=== PATIENT | male | born 1980 | race Caucasian/White ===

== ENCOUNTER 2017-10-22 09:21 | Emergency (ER) | payer OTHER, MEDICARE ==
[~2017-10-22] VITALS: Ht 180.3 cm; Wt 89.8 kg
[~2017-10-22 09:21] MED LIST: AZITHROMYCIN 2250 MG PO; BENADRYL25 MG PO; BUSPAR30 MG PO; COUMADIN 5 MG TA5 M1 PO; DEPAKOTE 250MG250 M1 PO; ESKALITH300 MG; FLOMAX PO; FLUVIRIN 245 MCG/010 IM; HYDROCODONE-AP1 EAC6 PO; HYDROCORTISONE; IMITREX 6M6 MG/0.5 M SQ; IMITREX6 MG/0.51 NASAL; IRON18 MG PO; LASIX 80 MG TAB80 M1 GT; LEXAPRO 10 MG T10 MG PO; LYRICA150 MG PO; METAMUCIL0.52 GM PO; MS CONTIN 30 MG30 MG GT; OMEPRAZOLE20 M2 PO; ORPHENADRINE C100 M2 PO; OXTELLAR XR300 MG PO; PERCOCET 10-651 EACH PO; PERCOCET 5-3251 EACH PO; PHENERGAN 25 MG25 MG PO; ROXICODONE30 M1; SPIRONOLACTONE50 MG PO; TIZANIDINE HCL6 MG PO; VERAPAMIL HCL80 MG PO; VIBRYD PO; XANAX XR1 MG PO; ZOFRAN4 MG PO; ZOLPIDEM TART6.25 MG PO
[2017-10-22] MEDS ORDERED: XARELTO10 MG PO (09:30)
[2017-10-22] MEDS ORDERED: LYRICA 50 MG50 MG PO (09:30)
[2017-10-22] MEDS ORDERED: OXYCONTIN10 M1 PO (09:31)
[2017-10-22 10:38] LABS: ABSOLUTE EOSINOPHILS 0.1 thou/uL (0.0-0.7); ABSOLUTE LYMPHOCYTES 1.9 thou/uL (0.8-5.3); ABSOLUTE MONOCYTES 0.5 thou/uL (0.0-1.2); ABSOLUTE NEUTROPHILS 8.5 thou/uL (1.6-8.1); BASOPHILS 0.4 %; EOSINOPHILS 1.3 %; HEMATOCRIT 42.9 % (42.0-52.0); HEMOGLOBIN 14.2 gm/dL (14.0-18.0); LYMPHOCYTES 17.3 %; MCH 32.5 pg (26.0-34.0); MCHC 33.1 g/dL (28.0-37.0); MONOCYTES 4.8 %; MPV 7.8 fl. (7.2-11.1); NUCLEATED RBCS 0 /100WBC; PLATELET COUNT* 301 thou/uL (150-400); POLYS 76.2 %; RBC 4.38 mil/uL (4.50-6.00); RDW-CV 14.2 % (10.5-14.5); WBC 11.2 thou/uL (4.0-11.0)
[2017-10-22 10:42] LABS: CALCIUM 8.8 mg/dL (8.5-10.1); CREATININE 0.8 mg/dL (0.6-1.3); POTASSIUM 3.4 mmol/L (3.5-5.1)
[2017-10-22 10:45] LABS: URINE BILIRUBIN NEGATIVE (Negative); URINE BLOOD NEGATIVE (Negative); URINE CLARITY CLEAR; URINE COLOR YELLOW; URINE GLUCOSE-RANDOM NEGATIVE (Negative); URINE KETONES NEGATIVE (Negative); URINE LEUKOCYTES-REFLEX NEGATIVE (Negative); URINE NITRITE-REFLEX NEGATIVE (Negative); URINE PROTEIN NEGATIVE (Negative); URINE SPECIFIC GRAVITY <= 1.005 (1.005-1.030); URINE UROBILINOGEN 0.2 E.U./dl (0.2-1.0)
[2017-10-22 10:47] LABS: ALBUMIN 3.7 g/dL (3.4-5.0); TOTAL BILIRUBIN 0.3 mg/dL (<0.1-1.0); TOTAL PROTEIN 6.9 g/dL (6.4-8.2)
[2017-10-22 12:30] LABS: AMP/METHAMP Negative (Negative); BARBITURATES Negative (Negative); BENZODIAZEPINES Negative (Negative); COCAINE Negative (Negative); METHADONE Negative (Negative); OPIATES POSITIVE (Negative); PCP Negative (Negative); THC Negative (Negative)
[2017-10-22 13:03] VITALS: BP 106/58
--- NOTE | 2017-10-22 18:04 | EKG ---
[place] [address] ELECTROCARDIOGRAM REPORT Name: LENA CLINE Room: 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
== END 2017-10-22 13:02 | disposition home or self-care (01) ==
LOC: M.ERS 09:21
PROVIDERS: Personal Emergency Response Attendant
DX: R10.31 Right lower quadrant pain (principal); R10.32 Left lower quadrant pain; Z86.711 Personal history of pulmonary embolism

== ENCOUNTER → 2018-05-06 | Outpatient (CLI) | payer OTHER, MEDICARE ==
[~2018-05-06] MED LIST changes: +LYRICA 50 MG50 MG PO; +OXYCONTIN10 M1 PO; +XARELTO10 MG PO
== END ==
LOC: M.ULTRA 14:30
DX: R22.42 Localized swelling, mass and lump, left lower limb (principal); W19.XXXA Unspecified fall, initial encounter

== ENCOUNTER → 2020-01-04 | Outpatient (CLI) | payer MEDICARE, OTHER ==
[~2020-01-04] MED LIST changes: +IRON PO; +MS CONTIN30 MG PO; +PERCOCET 10-321 EAC1 PO; +PROTONIX40 M2 PO; +XANAX1 MG PO
--- NOTE | ~2020-01-04 | PAINCON ---
[address] [address] PAIN MANAGEMENT CONSULTATION Name: LENA CLINE Room: [facility] VerónicaYared#: [id number] Admission: 01/04/20 Attend Phys: Gagandeep Arora MD Discharge: Date of : 82 Report #: [id number] THIS REPORT FOR: //name// cc: Klever Gomez Russell J. DO ~ THIS REPORT FOR: //name// CC: Kala Gomez DATE OF SERVICE: 01/04/2020 CHIEF COMPLAINT: Chronic back pain after about 15 back surgeries. HISTORY OF PRESENT ILLNESS: The patient is a 39-year-old gentleman, who has been having significant problems with pain over the last few years. He has undergone about 15 surgeries per his report. 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 He developed degenerative joint problems. He has had a number of treatment courses to help with the pain. He has had a pain pump. He has been seen at [facility]. He has had surgery as recently as 07/2019. He suffers from scar tissue problems accentuating his pain. He has difficulty with sleeping. He has had a number of epidural steroid injections. He states that these are no longer working. The patient has been fused at L3-L4, L4-L5, and L5-S1. 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 In 10/2018, he had a recent revision and fusion of 2 levels. In 07/2019, he had a laminectomy to loosen some screws. Epidurals 2 months ago caused full body spasms while on the table. ALLERGIES: No known drug allergies. CURRENT MEDICATIONS: Xanax 1 mg, morphine sulfate 30 mg 1 p.o. t.i.d., oxycodone 10/325 one p.o. 4 times daily, Protonix 40 mg, Lyrica 150 mg 2 tablets at bedtime, Imitrex for headaches, tizanidine muscle relaxant 6 mg t.i.d., iron. PAST MEDICAL HISTORY: Stomach problems, ulcers. PAST SURGICAL HISTORY: 15 back surgeries from 2008 to present. SOCIAL HISTORY: He is on disability. He has been unable to work for the last 10 years. REVIEW OF SYSTEMS: Generally good health, fatigue, weakness, hearing loss/ringing in the ears, ear drainage, earaches, chronic sinus problems, [place] [address] PAIN MANAGEMENT CONSULTATION Name: CLINELENA LUCAS Vickie Room: [facility]#: [id number] Admission: 01/04/20 Attend Phys: Gagandeep Arora MD Discharge: Date of : 82 Report #: [id number] of appetite, nausea and vomiting, peptic ulcers, joint pain, joint stiffness, weakness of muscles and joints, back pain, difficulty walking, frequent recurrent headaches, anemia. LABORATORY DATA: No new lab values are available at the time of our interview. PHYSICAL EXAMINATION: GENERAL: The patient is a well-developed white male. He appears his stated age. He is alert and oriented x 3. His affect is appropriate. Speech is fluent. The patient is wearing a facial covering. HEART: Regular. ABDOMEN: Nontender. MUSCULOSKELETAL: Upper extremity muscle strength is judged to be 5/5 for the major muscle groups in the upper extremity. The patient complains of pain and discomfort radiating down into his left leg. He has mid back pain. He has a series of scars in the lower lumbar area. He uses his hands to go from a sitting to a standing position. He walks with a very antalgic gait, leaning to one side. IMPRESSION: 1. Chronic pain with history of 15 back surgeries. 2. Stomach problems, ulcers. RECOMMENDATIONS: We discussed the patient's condition. We explained to him that at this juncture, we are not taking on patients for medical management. We explained that with the CDC's recommendations, generally if a patient starts in a clinic, the morphine equivalent has to be below 90. The patient has a morphine equivalent today of 150. We would recommend the patient continue with his pain physician who he is working with. Hopefully, he will continue to find improvement in his condition. We would like to thank you for letting us participate in his care. We hope he continues to improve. By: [id number]. Naman Arora MD /nt
== END ==
LOC: M.PC 07:39
PROVIDERS: ATTEND Anesthesiology Pain Medicine
DX: M54.5 Low back pain (principal); G89.29 Other chronic pain; K25.9 Gastric ulcer, unspecified as acute or chronic, without hemorrhage or perforation; Z79.899 Other long term (current) drug therapy

== ENCOUNTER 2020-09-01 07:59 | Emergency (ER) | payer MEDICARE, OTHER ==
[~2020-09-01] VITALS: Ht 175.3 cm; Wt 108.0 kg
[~2020-09-01 07:59] MED LIST changes: +CARAFATE 1 GM TA1 G1 PO
[2020-09-01 08:41] LABS: ABSOLUTE EOSINOPHILS 0.1 thou/uL (0.0-0.7); ABSOLUTE LYMPHOCYTES 1.7 thou/uL (0.8-5.3); ABSOLUTE MONOCYTES 0.3 thou/uL (0.0-1.2); ABSOLUTE NEUTROPHILS 3.4 thou/uL (1.6-8.1); BASOPHILS 0.8 %; EOSINOPHILS 1.6 %; HEMATOCRIT 31.9 % (42.0-52.0); HEMOGLOBIN 10.1 gm/dL (14.0-18.0); LYMPHOCYTES 31.1 %; MCH 22.8 pg (26.0-34.0); MCHC 31.5 g/dL (28.0-37.0); MCV 72.2 fL (80.0-100.0); MONOCYTES 5.6 %; NUCLEATED RBCS 0 /100WBC; PLATELET COUNT* 425 thou/uL (150-400); POLYS 60.9 %; RBC 4.41 mil/uL (4.50-6.00); RDW-CV 18.5 % (10.5-14.5); WBC 5.6 thou/uL (4.0-11.0)
[2020-09-01 08:49] LABS: CALCIUM 8.4 mg/dL (8.5-10.1); CREATININE 0.7 mg/dL (0.6-1.3); POTASSIUM 3.8 mmol/L (3.5-5.1)
[2020-09-01 08:59] LABS: ALBUMIN 3.2 g/dL (3.4-5.0); TOTAL BILIRUBIN 0.4 mg/dL (<0.1-1.0); TOTAL PROTEIN 6.7 g/dL (6.4-8.2)
[2020-09-01 10:44] LABS: ANISOCYTOSIS 1+; HYPOCHROMASIA 2+; OVALOCYTES 1+; PLATELET ESTIMATE INCREASED; POIKILOCYTOSIS 1+
[2020-09-01] MEDS ORDERED: ZOFRAN ODT4 MG DISSOLVE (10:57)
[2020-09-01 11:21] VITALS: BP 126/74
--- NOTE | 2020-09-01 15:51 | EKG ---
[place] [address] ELECTROCARDIOGRAM REPORT Name: LENA CLINE Room: [facility]#: [id number] Admission: 09/01/20 Attend Phys: Discharge: 09/01/20 Date of : 82 Date of Service: 09/01/20 0844 Report #: [id number] THIS REPORT FOR: //name// [facility] ED Test Date: 2020-09-01 Test Time: 08:44:55 Pat Name: LENA CLINE Department: Room: Gender: Spirits Model: ALICE : 1980 Requested By: Jose Angel Hernandez Order Number: [id number] MD: Aleksandar Zhu Measurements Intervals [place] Rate: 78 P: 6 [place]: 156 QRS: -9 QRSD: 119 T: 26 QT: 362 QTc: 413 Interpretive Statements Sinus rhythm Nonspecific intraventricular conduction delay Baseline wander in lead(s) II,III,aVR,aVF,V3,V4,V5,V6 Compared to ECG 08/21/2020 10:00:33 no change Electronically Signed On 09-01-2020 15:51:10 CDT by Aleksandar Zhu [email or web address] <ELECTRONICALLY SIGNED> By: Aleksandar Zhu MD, [facility] 09/01/20 1551 0844 0844 Aleksandar Zhu MD, [facility] /EPI
--- NOTE | 2020-09-01 15:52 | EKG ---
[place] [address] ELECTROCARDIOGRAM REPORT Name: LENA CLINE Room: [facility]#: [id number] Admission: 09/01/20 Attend Phys: Discharge: 09/01/20 Date of : 82 Date of Service: 09/01/20 0933 Report #: [id number] THIS REPORT FOR: //name// [facility] ED Test Date: 2020-09-01 Test Time: 09:33:11 Pat Name: LENA CLINE Department: Room: Gender: Technical Spec: : 1980 Requested By: Jose Angel Hernandez Order Number: [id number] Shira MD: Aleksandar Zhu Measurements Intervals [place] Rate: 65 P: 15 [place]: 167 QRS: -13 QRSD: 108 T: 6 QT: 423 QTc: 440 Interpretive Statements Sinus rhythm RSR' in V1 Compared to ECG 09/01/2020 08:44:55 no change Electronically Signed On 09-01-2020 15:51:50 CDT by Aleksandar Zhu [email or web address] <ELECTRONICALLY SIGNED> By: Aleksandar Zuh MD, [facility] 09/01/20 1551 0933 2 Aleksandar Zhu MD, [facility] /EPI
== END 2020-09-01 11:22 | disposition home or self-care (01) ==
LOC: M.ERS 07:59
PROVIDERS: Emergency Medicine Emergency Medical Services
DX: R10.10 Upper abdominal pain, unspecified (principal); Z88.1 Allergy status to other antibiotic agents; Z86.711 Personal history of pulmonary embolism

== ENCOUNTER 2021-02-05 09:35 | Emergency (ER) | payer MEDICARE, OTHER ==
[~2021-02-05] VITALS: Ht 175.3 cm; Wt 108.9 kg
[~2021-02-05 09:35] MED LIST changes: +ZOFRAN ODT4 MG DISSOLVE
[2021-02-05] MEDS ORDERED: PERCOCET 5-3251 EACH PO (09:48)
[2021-02-05] MEDS ORDERED: VENLAFAXINE HCL25 MG PO (09:48)
[2021-02-05 10:13] LABS: ABSOLUTE BASOPHILS 0.1 thou/uL (0.0-0.2); ABSOLUTE EOSINOPHILS 0.1 thou/uL (0.0-0.7); ABSOLUTE LYMPHOCYTES 1.2 thou/uL (0.8-5.3); ABSOLUTE MONOCYTES 0.5 thou/uL (0.0-1.2); BASOPHILS 0.6 %; EOSINOPHILS 0.6 %; HEMATOCRIT 37.5 % (42.0-52.0); HEMOGLOBIN 11.9 gm/dL (14.0-18.0); LYMPHOCYTES 13.5 %; MCH 25.1 pg (26.0-34.0); MCHC 31.8 g/dL (28.0-37.0); MONOCYTES 5.3 %; MPV 7.6 fl. (7.2-11.1); NUCLEATED RBCS 0 /100WBC; PLATELET COUNT* 274 thou/uL (150-400); RBC 4.75 mil/uL (4.50-6.00); RDW-CV 18.8 % (10.5-14.5); WBC 8.7 thou/uL (4.0-11.0)
--- NOTE | 2021-02-05 10:24 | EKG ---
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
[2021-02-05 10:30] LABS: ALBUMIN 3.8 g/dL (3.4-5.0); CREATININE 0.8 mg/dL (0.6-1.3); POTASSIUM 3.9 mmol/L (3.5-5.1); TOTAL BILIRUBIN 0.4 mg/dL (<0.1-1.0); TOTAL PROTEIN 7.7 g/dL (6.4-8.2)
[2021-02-05] MEDS ORDERED: ZOFRAN ODT4 MG DISSOLVE (11:48)
[2021-02-05] MEDS ORDERED: HYDROCODON-ACE1 EAC7 PO (11:48)
[2021-02-05 11:58] VITALS: BP 134/72
== END 2021-02-05 11:59 | disposition home or self-care (01) ==
LOC: M.ERS 09:35
PROVIDERS: Family Medicine
DX: R10.11 Right upper quadrant pain (principal); Z79.899 Other long term (current) drug therapy; Z88.8 Allergy status to other drugs, medicaments and biological substances

== ENCOUNTER 2021-03-14 12:18 | Emergency (ER) | payer MEDICARE, OTHER ==
[~2021-03-14] VITALS: Ht 175.3 cm; Wt 106.6 kg
[~2021-03-14 12:18] MED LIST changes: +HYDROCODON-ACE1 EAC7 PO; +VENLAFAXINE HCL25 MG PO
[2021-03-14 13:32] VITALS: BP 168/103
== END 2021-03-14 13:32 | disposition home or self-care (01) ==
LOC: M.ERS 12:18
DX: S61.211A Laceration without foreign body of left index finger without damage to nail, initial encounter (principal); F12.90 Cannabis use, unspecified, uncomplicated; Z88.1 Allergy status to other antibiotic agents; Z79.899 Other long term (current) drug therapy; W29.8XXA Contact with other powered hand tools and household machinery, initial encounter; Y93.89 Activity, other specified; Y92.89 Other specified places as the place of occurrence of the external cause; Y99.9 Unspecified external cause status

== ENCOUNTER 2021-04-21 11:58 | Emergency (ER) | payer MEDICARE, OTHER ==
[~2021-04-21] VITALS: Ht 175.3 cm; Wt 99.8 kg
[2021-04-21] MEDS ORDERED: HYDROCODON-ACE1 EAC7 PO (12:18)
[2021-04-21] MEDS ORDERED: BACTRIM DS TAB1 EACH PO (12:50)
[2021-04-21] MEDS ORDERED: CEPHALEXIN500 MG PO (12:50)
[2021-04-21 13:23] VITALS: BP 145/72
== END 2021-04-21 13:24 | disposition home or self-care (01) ==
LOC: M.ERS 11:58
DX: S61.216A Laceration without foreign body of right little finger without damage to nail, initial encounter (principal); S61.411A Laceration without foreign body of right hand, initial encounter; L03.113 Cellulitis of right upper limb; Z98.84 Bariatric surgery status; Z98.890 Other specified postprocedural states; Z86.711 Personal history of pulmonary embolism; Z79.899 Other long term (current) drug therapy; Z88.1 Allergy status to other antibiotic agents; W45.8XXA Other foreign body or object entering through skin, initial encounter; Y93.89 Activity, other specified; Y92.89 Other specified places as the place of occurrence of the external cause; Y99.8 Other external cause status